=== PATIENT | female | born 1980 | race Caucasian/White ===

== ENCOUNTER 2017-04-24 13:06 | Emergency (ER) | END 2017-04-24 15:43 | disposition home or self-care (01) ==

== ENCOUNTER 2018-08-27 23:11 | Inpatient (IN) | payer MEDICAID ==
[~2018-08-27] VITALS: Ht 157.5 cm; Wt 63.5 kg
[~2018-08-27 23:11] MED LIST: AMLO2.5T78 PO; IBUP800T48 PO
[2018-08-27] MEDS ORDERED: ACETAMINOPHEN 325 MG TAB PO STA (23:14)
[2018-08-27] MEDS ORDERED: CEFEPIME 2GM/50 ML (PMX) 50 ML IVPB STA (23:14)
[2018-08-27] MEDS ORDERED: SODIUM CHLORIDE 0.9% 1L BAG IV* STA (23:18)
[2018-08-27] MEDS ORDERED: VANCOMYCIN 1 GM (PMX) 250 ML IVPB ONE (23:30)
[2018-08-27] MEDS ORDERED: ONDANSETRON 4 MG INJ IV STA (23:34)
[2018-08-27] MEDS ORDERED: HYDROmorphONE 2 MG/ML SYG IV STA (23:34)
[2018-08-27] MEDS ORDERED: ONDANSETRON 4 MG INJ ONE (23:37)
[2018-08-28 04:20] VITALS: BP 119/69; PULSE 95; RESP 18
[2018-08-28 04:33] VITALS: Ht 157.5 cm; Wt 63.5 kg
--- NOTE | 2018-08-28 04:47 | ERD ---
ER Documentation Chief Complaint Chief Complaint CP, FEVER, COUGH, X'S 3 DAYS HPI Is a 38-year-old female currently chest pain-free and without for 3 days. Vital signs triggered sepsis. Code sepsis called immediately. Per the patient has had a productive cough for the past 3 days has been getting progressively worse. She also says she has noticed an axillary lymph node is got progressively larger. Patient has history of breast cancer and has not been able to follow-up with her oncologist. ROS All systems reviewed and are negative except as per history of present illness. Medications Home Meds Active Scripts Ibuprofen* (Motrin*) 800 Mg Tab, 800 MG PO Q6H PRN for PAIN AND OR ELEVATED TEMP, #30 TAB Prov:AYAN VEGA MD 04/24/17 Reported Medications Amlodipine Besylate* (Amlodipine Besylate*) Unknown Strength Tablet, PO DAILY, #30 TAB 04/24/17 Allergies Allergies: Coded Allergies: No Known Allergy (Unverified , 08/28/18) PMhx/Soc History of Surgery: Yes (right mastectomy) Anesthesia Reaction: No Hx Neurological Disorder: No Hx Respiratory Disorders: No Hx Cardiac Disorders: Yes (HTN) Hx Psychiatric Problems: No Hx Alcohol Use: No Hx Substance Use: No Hx Tobacco Use: No Smoking Status: Never smoker Physical Exam Vitals Vital Signs Date Temp Pulse Resp B/P (MAP) Pulse Ox O2 O2 Flow FiO2 Time Delivery Rate 08/28/18 98.4 86 26 120/79 99 Room Air 01:30 (93) 08/27/18 101.7 134 22 140/79 96 23:15 (99) Physical Exam Const: No acute distress Head: Atraumatic Eyes: Normal Conjunctiva ENT: Normal External Ears, Nose and Mouth. Neck: Full range of motion. No meningismus. Resp: Clear to auscultation bilaterally Cardio: Regular rate and rhythm, no murmurs Abd: Soft, non tender, non distended. Normal bowel sounds Skin: No petechiae or rashes Back: No midline or flank tenderness Ext: No cyanosis, or edema Neur: Awake and alert Psych: Normal Mood and Affect Result Diagram: 08/27/18 4394 08/27/18 4543 Results 24 hrs Laboratory Tests Test 08/27/18 23:20 08/27/18 23:28 08/27/18 23:30 08/27/18 23:35 Urine Color YELLOW Urine Clarity SLIGHTLY CLOUDY Urine pH 6.0 Urine Specific 1.012 [place] Urine Ketones NEGATIVE mg/dL Urine Nitrite NEGATIVE mg/dL Urine Bilirubin NEGATIVE mg/dL Urine NEGATIVE mg/dL Urobilinogen Urine Leukocyte NEGATIVE Lupillo/ul Esterase Urine Microscopic 12 /HPF RBC Urine Microscopic 1 /HPF WBC Urine Squamous FEW /HPF Epithelial Cells Urine Bacteria FEW /HPF Urine Mucus FEW /HPF Urine Hemoglobin 2+ mg/dL Urine Glucose NEGATIVE mg/dL Urine Total 1+ mg/dl Protein White Blood Count 13.8 10^3/ul Red Blood Count 5.02 10^6/ul Hemoglobin 13.9 g/dl Hematocrit 41.3 % Mean Corpuscular 82.3 fl Volume Mean Corpuscular 27.7 pg Hemoglobin Mean Corpuscular 33.7 g/dl Hemoglobin Concen t Red Cell 13.5 % Distribution Width Platelet Count 264 10^3/UL Mean Platelet 10.5 fl Volume Immature 0.500 % Granulocytes % Neutrophils % 62.8 % Lymphocytes % 19.6 % Monocytes % 8.3 % Eosinophils % 8.1 % Basophils % 0.7 % Nucleated Red 0.0 /100WBC Blood Cells % Immature 0.070 10^3/ul Granulocytes # Neutrophils # 8.7 10^3/ul Lymphocytes # 2.7 10^3/ul Monocytes # 1.1 10^3/ul Eosinophils # 1.1 10^3/ul Basophils # 0.1 10^3/ul Nucleated Red 0.0 10^3/ul Blood Cells # Prothrombin Time 11.9 Sec Prothrombin Time 0.9 Ratio INR International 0.87 Normalized Ratio Activated 28.6 Sec Partial Thrombopl ast Time Sodium Level 139 mmol/L Potassium Level 3.9 mmol/L Chloride Level 105 mmol/L Carbon Dioxide 23 mmol/L Level Anion Gap 11 Blood Urea 10 mg/dl Nitrogen Creatinine 0.66 mg/dl Est Glomerular > 60 mL/min Filtrat Rate mL/min Glucose Level 142 mg/dl Calcium Level 9.3 mg/dl Total Bilirubin 0.6 mg/dl Direct Bilirubin 0.00 mg/dl Indirect 0.6 mg/dl Bilirubin Aspartate Amino 33 IU/L Transf (AST/SGOT) Alanine 27 IU/L Aminotransferase (ALT/SGPT) Alkaline 115 IU/L Phosphatase Troponin I < 0.012 ng/ml Total Protein 8.3 g/dl Albumin 4.6 g/dl Globulin 3.70 g/dl Albumin/Globulin 1.24 Ratio POC Venous 1.4 mmol/L Lactate POC Beta HCG, NEGATIVE Qualitative Test 08/28/18 01:50 Lactic Acid Level 0.7 mmol/L Current Medications Medications Dose Sig/Luis Start Time Status Last (Trade) Ordered Route PRN Stop Time Admin Dose Reason Admin 650 mg ONCE STAT 08/27/18 DC 08/27/18 Acetaminophen PO 23:14 23:39 (Tylenol 08/27/18 23:17 Tab) Cefepime HCl 50 ml @ ONCE STAT 08/27/18 DC 08/27/18 100 mls/hr IVPB 23:14 23:41 08/27/18 23:43 Vancomycin 250 ml @ ONCE ONCE 08/27/18 DC 08/27/18 HCl 125 mls/hr IVPB 23:30 23:30 08/28/18 01:29 Sodium 1,810 ml BOLUS OVER 2 08/27/18 DC 08/27/18 Chloride HOURS STAT 23:18 23:41 (NS) IV* 08/27/18 23:19 1 mg ONCE STAT 08/27/18 DC 08/27/18 Hydromorphone IV 23:34 23:39 HCl 08/27/18 23:37 (Dilaudid) Ondansetron 4 mg ONCE STAT 08/27/18 DC 08/27/18 HCl (Zofran IV 23:34 23:39 Inj) 08/27/18 23:37 Ondansetron 4 mg STK-MED 08/27/18 DC HCl (Zofran ONCE .ROUTE 23:37 Inj) 08/27/18 23:38 Procedures/MDM EKG: Rate/Rhythm: [Normal Sinus Rhythm] QRS, ST, T-waves: [No changes consistent w/ acute ischemia] Impression: [No evidence of ischemia or arrhythmia] Chest X-ray 1V Interpreted by me: Soft Tissue: No acute abnormalities Bones: No acute abnormalities Mediastinum/Cardiac Silhouette/Lungs: [No acute abnormalities] Patient's infectious symptoms have not stabilized and the patient is at risk of rapid decompensation. The patient will be admitted for careful hydration, antibiotic therapy, and infectious source control. Severe Sepsis Assessment: I medical decision making: Patient has no evidence of sepsis at this time, however she does meet Sirs criteria to be started on 30/kg fluid bolus along with antibiotics broad-spectrum. This could be secondary to axillary lymphadenopathy, however the patient did have a viral-like syndrome. At this point patient will be admitted pending culture results to the hospitalist. Again there is no evidence of sepsis or severe sepsis with negative lactic acid. Vital signs normalized during her stay here in the department given her elevation in in heart rate and the concerning adenopathy I feel the patient is admitted for further evaluation and management. Departure Diagnosis: Primary Impression: Fever Fever type: unspecified Qualified Codes: R50.9 - Fever, unspecified Additional Impressions: SIRS (systemic inflammatory response syndrome) Adenopathy Condition: Stable ABISAI KOCH August 28, 2018 04:47
[2018-08-28] MEDS ORDERED: AMLO2.5T78 PO (05:03)
[2018-08-28] MEDS ORDERED: ONDANSETRON 4 MG INJ IV PRN (05:30)
[2018-08-28] MEDS ORDERED: IBUPROFEN 600 MG TAB PO PRN (05:30)
[2018-08-28] MEDS ORDERED: NACL 0.9% 3 ML SYG IV SCH (05:30)
[2018-08-28] MEDS ORDERED: ALBUTEROL/IPRATROPIUM (NEB) 3 ML AMP HHN PRN (05:30)
[2018-08-28] MEDS: SOD CHLORIDE 0.9% 1,000 ML IV SCH ×2 (05:40→15:48)
--- NOTE | 2018-08-28 06:36 | HP ---
Date/Time of Note Date/Time of Note DATE: 08/28/18 TIME: 06:33 Assessment/Plan VTE Prophylaxis Pharmacological prophylaxis: heparin Lines/Catheters IV Catheter Type (from Nrs): Peripheral IV Assessment/Plan Assessment/Plan 1. Sepsis: As evidenced by fever, tachycardia and leukocytosis: Suspect secondary to early developing pneumonia VS bronchitis -IV antibiotic -IV fluid -Follow-up culture results 2. History of right breast cancer status post mastectomy as well as chemo/radiation: She said she has been in remission for many years -She said her oncologist is in [facility]. She states she does not follow-up with an oncologist here -Patient has a small palpable lump, just outside the right axilla. It is tender to touch. Will obtain CT for evaluation -Oncology consult as needed 3. Chest pain: Currently resolved -Likely secondary to 1 and 2 Result Diagram: 08/28/18 0551 08/27/18 2328 Results 24hrs Laboratory Tests Test 08/27/18 23:20 08/27/18 23:28 08/27/18 23:30 08/27/18 23:35 Urine Color YELLOW Urine Clarity SLIGHTLY CLOUDY A Urine pH 6.0 Urine Specific 1.012 [place] Urine Ketones NEGATIVE Urine Nitrite NEGATIVE Urine Bilirubin NEGATIVE Urine NEGATIVE Urobilinogen Urine Leukocyte NEGATIVE Esterase Urine Microscopic 12 H RBC Urine Microscopic 1 WBC Urine Squamous FEW Epithelial Cells Urine Bacteria FEW A Urine Mucus FEW A Urine Hemoglobin 2+ H Urine Glucose NEGATIVE Urine Total 1+ H Protein White Blood Count 13.8 #H Red Blood Count 5.02 Hemoglobin 13.9 Hematocrit 41.3 Mean Corpuscular 82.3 Volume Mean Corpuscular 27.7 L Hemoglobin Mean Corpuscular 33.7 Hemoglobin Concen t Red Cell 13.5 Distribution Width Platelet Count 264 Mean Platelet 10.5 H Volume Immature 0.500 H Granulocytes % Neutrophils % 62.8 Lymphocytes % 19.6 Monocytes % 8.3 Eosinophils % 8.1 H Basophils % 0.7 Nucleated Red 0.0 Blood Cells % Immature 0.070 H Granulocytes # Neutrophils # 8.7 H Lymphocytes # 2.7 Monocytes # 1.1 H Eosinophils # 1.1 H Basophils # 0.1 Nucleated Red 0.0 Blood Cells # Prothrombin Time 11.9 Prothrombin Time 0.9 Ratio INR International 0.87 Normalized Ratio Activated 28.6 Partial Thrombopl ast Time Sodium Level 139 Potassium Level 3.9 Chloride Level 105 Carbon Dioxide 23 Level Anion Gap 11 Blood Urea 10 Nitrogen Creatinine 0.66 Est Glomerular > 60 Filtrat Rate mL/min Glucose Level 142 Calcium Level 9.3 Total Bilirubin 0.6 Direct Bilirubin 0.00 Indirect 0.6 Bilirubin Aspartate Amino 33 Transf (AST/SGOT) Alanine 27 Aminotransferase (ALT/SGPT) Alkaline 115 Phosphatase Troponin I < 0.012 Total Protein 8.3 H Albumin 4.6 Globulin 3.70 H Albumin/Globulin 1.24 Ratio POC Venous 1.4 Lactate POC Beta HCG, NEGATIVE Qualitative Test 08/28/18 01:50 08/28/18 05:51 Lactic Acid Level 0.7 White Blood Count 9.9 # Red Blood Count 4.49 Hemoglobin 12.5 Hematocrit 37.2 Mean Corpuscular 82.9 Volume Mean Corpuscular 27.8 L Hemoglobin Mean Corpuscular 33.6 Hemoglobin Concen t Red Cell 13.8 Distribution Width Platelet Count 229 Mean Platelet 10.5 H Volume Immature 0.400 Granulocytes % Neutrophils % 59.4 Lymphocytes % 19.1 Monocytes % 11.2 H Eosinophils % 9.1 H Basophils % 0.8 Nucleated Red 0.0 Blood Cells % Immature 0.040 H Granulocytes # Neutrophils # 5.9 Lymphocytes # 1.9 Monocytes # 1.1 H Eosinophils # 0.9 H Basophils # 0.1 Nucleated Red 0.0 Blood Cells # HPI/ROS Admit Date/Time Admit Date/Time August 28, 2018 at 03:11 Hx of Present Illness This is a 38-year-old female with a history of breast cancer status post mastectomy who presented to ER complaining of right-sided chest pain, cough and fever. Symptoms been progressively getting worse for the past 3 days or so. Cough has been productive of whitish sputum. Also reports lump underneath just medial to her right armpit. Area is tender to touch. Patient also reported an episode of epistaxis. When she presented to the ER, she was febrile with temperature of 101.7, heart rate 134. WBC 14,000. Chest x-ray without acute findings. UA negative for UTI PMH/Family/Social Past Medical History Medical History: other (See HPI) Medications Current Medications Sodium Chloride 1,000 ml @ 100 mls/hr Q10H IV Last administered on 08/28/18at 05:40; Admin Dose 100 MLS/HR; Start 08/28/18 at 05:06 IV Flush (NS 3 ml) 3 ml PER PROTOCOL IV ; Start 08/28/18 at 05:30 Ondansetron HCl (Zofran Inj) 4 mg Q6H PRN IV NAUSEA/VOMITING; Start 08/28/18 at 05:30 Enoxaparin Sodium (Lovenox) 40 mg DAILY SC ; Start 08/28/18 at 09:00 Albuterol/ Ipratropium (Duoneb) 3 ml Q2H RESP THERAPY PRN HHN SHORTNESS OF BREATH; Start 08/28/18 at 05:30 Amlodipine Besylate (Norvasc) 5 mg DAILY PO ; Start 08/28/18 at 09:00 Ibuprofen (Motrin) 600 mg Q6H PRN PO MILD PAIN(1-3)OR ELEVATED TEMP; Start 08/28/18 at 05:30 Levofloxacin/ Dextrose 100 ml @ 100 mls/hr DAILY IVPB ; Start 08/28/18 at 09:00 Coded Allergies: No Known Allergy (Unverified , 08/28/18) Past Surgical History Past Surgical Hx: other (See HPI) Family History Significant Family History: no pertinent family hx Social History Alcohol Use: none Smoking Status: Unknown if ever smoked Drug Use: none Exam/Review of Systems Vital Signs Vitals Vital Signs Date Temp Pulse Resp B/P (MAP) Pulse Ox O2 O2 Flow FiO2 Time Delivery Rate 08/28/18 98.2 95 18 119/69 93 Room Air 04:20 (86) Exam Constitutional: alert, oriented, well developed Head: normocephalic, atraumatic Eyes: EOMI, PERRL Respiratory: clear to auscultation, normal air movement Cardiovascular: regular rate and rhythm, nl pulses Gastrointestinal: soft, non-tender Musculoskeletal: other (Status post right mastectomy. There is a small lump just outside the right axilla which is tender to touch.) Extremities: normal pulses ABISAI SILVA MD August 28, 2018 06:36
[2018-08-28 07:53] VITALS: BP 90/58; PULSE 58; RESP 18
[2018-08-28 08:53] VITALS: BP 107/57; PULSE 80
[2018-08-28] MEDS: AMLODIPINE 5 MG TAB PO SCH (08:58)
[2018-08-28] MEDS: ENOXAPARIN 40 MG/0.4 ML SYG SC SCH (09:00)
[2018-08-28] MEDS ORDERED: LEVOFLOXACIN 500MG/D5W (PMX) 100 ML IVPB SCH (09:00)
[2018-08-28] MEDS ORDERED: GUAIFENESIN/DM 5ML CUP PO PRN (12:00)
--- NOTE | 2018-08-28 12:05 | PN ---
Date/Time of Note Date/Time of Note DATE: 08/28/18 TIME: 12:03 Assessment/Plan VTE Prophylaxis Risk score (from [facility])>0 risk: 3 SCD applied (from [facility]): No SCD contraindicated: low risk/ambulating Pharmacological prophylaxis: NA/contraindicated, LMWH Pharm contraindication: patient refusal Lines/Catheters IV C[facility]ter Type (from [facility] Peripheral IV Assessment/Plan Hospital Course A/P 1. Pneumonitis? cough/ fever; consulted Pul 2. H/o Ca Breast; sx/chemo/ xrt in [facility] 3. Rt axilla lump S: cough; green/ yellow expectoration; sore throat, kid has cough. less fever O: vss PE no pallor/ jvd reg s1s2 no mrg ctab/ diminished bases; no tachypnea bs+ nt nd no r r g no edema Result Diagram: 08/28/1851 08/28/18 0551 Results 24hrs Laboratory Tests Test 08/27/18 23:20 08/27/18 23:28 08/27/18 23:30 08/27/18 23:35 Urine Color YELLOW Urine Clarity SLIGHTLY CLOUDY A Urine pH 6.0 Urine Specific 1.012 [place] Urine Ketones NEGATIVE Urine Nitrite NEGATIVE Urine Bilirubin NEGATIVE Urine NEGATIVE Urobilinogen Urine Leukocyte NEGATIVE Esterase Urine Microscopic 12 H RBC Urine Microscopic 1 WBC Urine Squamous FEW Epithelial Cells Urine Bacteria FEW A Urine Mucus FEW A Urine Hemoglobin 2+ H Urine Glucose NEGATIVE Urine Total 1+ H Protein White Blood Count 13.8 #H Red Blood Count 5.02 Hemoglobin 13.9 Hematocrit 41.3 Mean Corpuscular 82.3 Volume Mean Corpuscular 27.7 L Hemoglobin Mean Corpuscular 33.7 Hemoglobin Concen t Red Cell 13.5 Distribution Width Platelet Count 264 Mean Platelet 10.5 H Volume Immature 0.500 H Granulocytes % Neutrophils % 62.8 Lymphocytes % 19.6 Monocytes % 8.3 Eosinophils % 8.1 H Basophils % 0.7 Nucleated Red 0.0 Blood Cells % Immature 0.070 H Granulocytes # Neutrophils # 8.7 H Lymphocytes # 2.7 Monocytes # 1.1 H Eosinophils # 1.1 H Basophils # 0.1 Nucleated Red 0.0 Blood Cells # Prothrombin Time 11.9 Prothrombin Time 0.9 Ratio INR International 0.87 Normalized Ratio Activated 28.6 Partial Thrombopl ast Time Sodium Level 139 Potassium Level 3.9 Chloride Level 105 Carbon Dioxide 23 Level Anion Gap 11 Blood Urea 10 Nitrogen Creatinine 0.66 Est Glomerular > 60 Filtrat Rate mL/min Glucose Level 142 Calcium Level 9.3 Total Bilirubin 0.6 Direct Bilirubin 0.00 Indirect 0.6 Bilirubin Aspartate Amino 33 Transf (AST/SGOT) Alanine 27 Aminotransferase (ALT/SGPT) Alkaline 115 Phosphatase Troponin I < 0.012 Total Protein 8.3 H Albumin 4.6 Globulin 3.70 H Albumin/Globulin 1.24 Ratio POC Venous 1.4 Lactate POC Beta HCG, NEGATIVE Qualitative Test 08/28/18 01:50 08/28/18 05:51 Lactic Acid Level 0.7 0.9 White Blood Count 9.9 # Red Blood Count 4.49 Hemoglobin 12.5 Hematocrit 37.2 Mean Corpuscular 82.9 Volume Mean Corpuscular 27.8 L Hemoglobin Mean Corpuscular 33.6 Hemoglobin Concen t Red Cell 13.8 Distribution Width Platelet Count 229 Mean Platelet 10.5 H Volume Immature 0.400 Granulocytes % Neutrophils % 59.4 Lymphocytes % 19.1 Monocytes % 11.2 H Eosinophils % 9.1 H Basophils % 0.8 Nucleated Red 0.0 Blood Cells % Immature 0.040 H Granulocytes # Neutrophils # 5.9 Lymphocytes # 1.9 Monocytes # 1.1 H Eosinophils # 0.9 H Basophils # 0.1 Nucleated Red 0.0 Blood Cells # Sodium Level 140 Potassium Level 3.8 Chloride Level 110 Carbon Dioxide 21 Level Anion Gap 9 Blood Urea 7 Nitrogen Creatinine 0.53 Est Glomerular > 60 Filtrat Rate mL/min Glucose Level 103 Hemoglobin A1c 5.5 Calcium Level 7.9 L Total Bilirubin 0.5 Direct Bilirubin 0.00 Indirect 0.5 Bilirubin Aspartate Amino 23 Transf (AST/SGOT) Alanine 31 Aminotransferase (ALT/SGPT) Alkaline 90 Phosphatase Total Protein 6.9 # Albumin 3.6 # Globulin 3.30 H Albumin/Globulin 1.09 Ratio Triglycerides 234 H Level Cholesterol Level 130 LDL Cholesterol, 55 Calculated HDL Cholesterol 28 L Cholesterol/HDL 4.6 Ratio Exam/Review of Systems Exam Vitals Vital Signs Date Temp Pulse Resp B/P (MAP) Pulse Ox O2 O2 Flow FiO2 Time Delivery Rate 08/28/18 80 107/57 08:53 (74) 08/28/18 98.1 18 96 Room Air 07:53 Results Results 24hrs Laboratory Tests Test 08/27/18 23:20 08/27/18 23:28 08/27/18 23:30 08/27/18 23:35 Urine Color YELLOW Urine Clarity SLIGHTLY CLOUDY A Urine pH 6.0 Urine Specific 1.012 [place] Urine Ketones NEGATIVE Urine Nitrite NEGATIVE Urine Bilirubin NEGATIVE Urine NEGATIVE Urobilinogen Urine Leukocyte NEGATIVE Esterase Urine Microscopic 12 H RBC Urine Microscopic 1 WBC Urine Squamous FEW Epithelial Cells Urine Bacteria FEW A Urine Mucus FEW A Urine Hemoglobin 2+ H Urine Glucose NEGATIVE Urine Total 1+ H Protein White Blood Count 13.8 #H Red Blood Count 5.02 Hemoglobin 13.9 Hematocrit 41.3 Mean Corpuscular 82.3 Volume Mean Corpuscular 27.7 L Hemoglobin Mean Corpuscular 33.7 Hemoglobin Concen t Red Cell 13.5 Distribution Width Platelet Count 264 Mean Platelet 10.5 H Volume Immature 0.500 H Granulocytes % Neutrophils % 62.8 Lymphocytes % 19.6 Monocytes % 8.3 Eosinophils % 8.1 H Basophils % 0.7 Nucleated Red 0.0 Blood Cells % Immature 0.070 H Granulocytes # Neutrophils # 8.7 H Lymphocytes # 2.7 Monocytes # 1.1 H Eosinophils # 1.1 H Basophils # 0.1 Nucleated Red 0.0 Blood Cells # Prothrombin Time 11.9 Prothrombin Time 0.9 Ratio INR International 0.87 Normalized Ratio Activated 28.6 Partial Thrombopl ast Time Sodium Level 139 Potassium Level 3.9 Chloride Level 105 Carbon Dioxide 23 Level Anion Gap 11 Blood Urea 10 Nitrogen Creatinine 0.66 Est Glomerular > 60 Filtrat Rate mL/min Glucose Level 142 Calcium Level 9.3 Total Bilirubin 0.6 Direct Bilirubin 0.00 Indirect 0.6 Bilirubin Aspartate Amino 33 Transf (AST/SGOT) Alanine 27 Aminotransferase (ALT/SGPT) Alkaline 115 Phosphatase Troponin I < 0.012 Total Protein 8.3 H Albumin 4.6 Globulin 3.70 H Albumin/Globulin 1.24 Ratio POC Venous 1.4 Lactate POC Beta HCG, NEGATIVE Qualitative Test 08/28/18 01:50 08/28/18 05:51 Lactic Acid Level 0.7 0.9 White Blood Count 9.9 # Red Blood Count 4.49 Hemoglobin 12.5 Hematocrit 37.2 Mean Corpuscular 82.9 Volume Mean Corpuscular 27.8 L Hemoglobin Mean Corpuscular 33.6 Hemoglobin Concen t Red Cell 13.8 Distribution Width Platelet Count 229 Mean Platelet 10.5 H Volume Immature 0.400 Granulocytes % Neutrophils % 59.4 Lymphocytes % 19.1 Monocytes % 11.2 H Eosinophils % 9.1 H Basophils % 0.8 Nucleated Red 0.0 Blood Cells % Immature 0.040 H Granulocytes # Neutrophils # 5.9 Lymphocytes # 1.9 Monocytes # 1.1 H Eosinophils # 0.9 H Basophils # 0.1 Nucleated Red 0.0 Blood Cells # Sodium Level 140 Potassium Level 3.8 Chloride Level 110 Carbon Dioxide 21 Level Anion Gap 9 Blood Urea 7 Nitrogen Creatinine 0.53 Est Glomerular > 60 Filtrat Rate mL/min Glucose Level 103 Hemoglobin A1c 5.5 Calcium Level 7.9 L Total Bilirubin 0.5 Direct Bilirubin 0.00 Indirect 0.5 Bilirubin Aspartate Amino 23 Transf (AST/SGOT) Alanine 31 Aminotransferase (ALT/SGPT) Alkaline 90 Phosphatase Total Protein 6.9 # Albumin 3.6 # Globulin 3.30 H Albumin/Globulin 1.09 Ratio Triglycerides 234 H Level Cholesterol Level 130 LDL Cholesterol, 55 Calculated HDL Cholesterol 28 L Cholesterol/HDL 4.6 Ratio Medications Medication Current Medications Sodium Chloride 1,000 ml @ 100 mls/hr Q10H IV Last administered on 08/28/18at 05:40; Admin Dose 100 MLS/HR; Start 08/28/18 at 05:06 IV Flush (NS 3 ml) 3 ml PER PROTOCOL IV ; Start 08/28/18 at 05:30 Ondansetron HCl (Zofran Inj) 4 mg Q6H PRN IV NAUSEA/VOMITING; Start 08/28/18 at 05:30 Enoxaparin Sodium (Lovenox) 40 mg DAILY SC Last administered on 08/28/18at 09:00; Admin Dose 40 MG; Start 08/28/18 at 09:00 Albuterol/ Ipratropium (Duoneb) 3 ml Q2H RESP THERAPY PRN HHN SHORTNESS OF BREATH; Start 08/28/18 at 05:30 Amlodipine Besylate (Norvasc) 5 mg DAILY PO Last administered on 08/28/18at 08:58; Admin Dose 5 MG; Start 08/28/18 at 09:00 Ibuprofen (Motrin) 600 mg Q6H PRN PO MILD PAIN(1-3)OR ELEVATED TEMP; Start 08/28/18 at 05:30 Levofloxacin/ Dextrose 100 ml @ 100 mls/hr DAILY IVPB Last administered on 08/28/18at 09:29; Admin Dose 100 MLS/HR; Start 08/28/18 at 09:00 CATHERINE REID MD August 28, 2018 12:05
[2018-08-28 14:00] VITALS: BP 99/62; PULSE 100; RESP 18
[2018-08-28 19:51] VITALS: BP 98/65; PULSE 77; RESP 20
[2018-08-28] MEDS: OXYMETAZOLINE 0.05% 15 ML NAS SPRAY NASAL SCH (20:41)
[2018-08-29] MEDS: SOD CHLORIDE 0.9% 1,000 ML IV SCH ×3 (01:14→21:40)
[2018-08-29 01:53] VITALS: BP 91/57; PULSE 77; RESP 18
[2018-08-29] MEDS: LEVOFLOXACIN 750 MG TABLET PO SCH (06:31)
[2018-08-29 08:11] VITALS: BP 97/54; PULSE 75; RESP 16
[2018-08-29] MEDS: AMLODIPINE 5 MG TAB PO SCH (08:33)
[2018-08-29] MEDS: ENOXAPARIN 40 MG/0.4 ML SYG SC SCH (08:39)
[2018-08-29] MEDS: OXYMETAZOLINE 0.05% 15 ML NAS SPRAY NASAL SCH ×3 (08:45→21:36)
--- NOTE | 2018-08-29 10:57 | CONS ---
Assessment/Plan Assessment/Plan Assessment/Plan (Daily) Assessment recommendations; 1. Patient admitted bilateral acquired pneumonia possibly with a viral component. Clinically improving. 2. Remote history of right breast cancer. Continue Levaquin. Add Tamiflu 75 mg twice daily for 5 days. Continue other supportive measures. Obtain follow-up chest x-ray in 48 hours. Consultation Date/Type/Reason Admit Date/Time August 28, 2018 at 03:11 Date of Consultation: August 29, 2018 Type of Consult Pulmonary Patient is a pleasant 38-year-old lady who came into the hospital with 2-day history of coughing and chest congestion with scant sputum production. Patient denies any high fever, chills, body aches or myalgias. Since admission patient is feeling better. Past medical history; 1. Remote history of right breast cancer status post mastectomy with chemoradiation. Apparently patient is in remission. Medications; reviewed. Allergies; none. Social history; noncontributory. Family history; noncontributory. Occupational history; patient is a housewife. Review of systems; denies any headache, visual changes, sinus symptoms. Complains of scant cough without any hemoptysis. Complains of very scant yellow sputum production. Denies any body aches or myalgias. Any wheezing. Any abdominal pain, nausea vomiting. Any weight loss. Any skin changes or any new arthritis symptoms. Denies any melena hematochezia. General exam; young female, awake alert, currently no distress on room air. Date/Time of Note DATE: 08/29/18 TIME: 10:54 Past Medical History Medical History: other (See HPI) Home Meds Active Scripts Ibuprofen* (Motrin*) 800 Mg Tab, 800 MG PO Q6H PRN for PAIN AND OR ELEVATED TE MP, #30 TAB Prov:AYAN VEGA MD 04/24/17 Reported Medications Amlodipine Besylate* (Amlodipine Besylate*) 2.5 Mg Tablet, 5 MG PO DAILY, #30 TAB 08/28/18 Amlodipine Besylate* (Amlodipine Besylate*) Unknown Strength Tablet, PO DAILY, #30 TAB 04/24/17 Medications Current Medications Sodium Chloride 1,000 ml @ 100 mls/hr Q10H IV Last administered on 08/29/18at 01:14; Admin Dose 100 MLS/HR; Start 08/28/18 at 05:06 IV Flush (NS 3 ml) 3 ml PER PROTOCOL IV ; Start 08/28/18 at 05:30 Ondansetron HCl (Zofran Inj) 4 mg Q6H PRN IV NAUSEA/VOMITING; Start 08/28/18 at 05:30 Enoxaparin Sodium (Lovenox) 40 mg DAILY SC Last administered on 08/29/18at 08:39; Admin Dose 40 MG; Start 08/28/18 at 09:00 Albuterol/ Ipratropium (Duoneb) 3 ml Q2H RESP THERAPY PRN HHN SHORTNESS OF BREATH; Start 08/28/18 at 05:30 Amlodipine Besylate (Norvasc) 5 mg DAILY PO Last administered on 08/28/18at 08:58; Admin Dose 5 MG; Start 08/28/18 at 09:00 Ibuprofen (Motrin) 600 mg Q6H PRN PO MILD PAIN(1-3)OR ELEVATED TEMP; Start 08/28/18 at 05:30 Levofloxacin (Levaquin) 750 mg DAILY@06 PO Last administered on 08/29/18at 06:31; Admin Dose 750 MG; Start 08/29/18 at 06:00 Guaifenesin/ Dextromethorphan (Robitussin Dm Liquid Cup) 10 ml Q4 PRN PO COUGH; Start 08/28/18 at 12:00 Oxymetazoline HCl (Afrin [place]) 2 spray BID NASAL ; Start 08/29/18 at 08:45 Allergies: Coded Allergies: No Known Allergy (Unverified , 08/28/18) Past Surgical History Past Surgical Hx: other (See HPI) Social History Alcohol Use: none Smoking Status: Unknown if ever smoked Drug Use: none Exam/Review of Systems Exam Vitals Vital Signs Date Temp Pulse Resp B/P (MAP) Pulse Ox O2 O2 Flow FiO2 Time Delivery Rate 08/29/18 98.0 75 16 97/54 (68) 98 Room Air 08:11 Intake and Output 08/28/18 08/28/18 08/29/18 1515:00 23:00 07:00 IntakeIntake Total 740 ml 1570 ml 1150 ml BalanceBalance 740 ml 1570 ml 1150 ml Exam HEENT exam; supple neck, no JVD. No lymphadenopathy. Midline trachea. No thyromegaly. Patient has fair dentition. Pharynx is clear. Chest exam; diminished but clear breath sounds. S1-S2 audible, no murmurs. Regular rhythm. Abdomen exam; soft, no organomegaly. Bowel sounds audible. Extremity exam; no peripheral edema or clubbing. [employer] exam; no focal deficit. Results Result Diagram: 08/29/18 0534 08/29/18 0542 Results 24hrs Laboratory Tests Test 08/29/18 05:34 08/29/18 05:42 White Blood Count 7.5 # Red Blood Count 4.48 Hemoglobin 12.3 Hematocrit 37.5 Mean Corpuscular Volume 83.7 Mean Corpuscular Hemoglobin 27.5 L Mean Corpuscular Hemoglobin Concent 32.8 Red Cell Distribution Width 13.6 Platelet Count 242 Mean Platelet Volume 10.4 Immature Granulocytes % 0.400 Neutrophils % 47.3 Lymphocytes % 31.5 Monocytes % 8.5 Eosinophils % 11.6 H Basophils % 0.7 Nucleated Red Blood Cells % 0.0 Immature Granulocytes # 0.030 Neutrophils # 3.6 Lymphocytes # 2.4 Monocytes # 0.6 Eosinophils # 0.9 H Basophils # 0.1 Nucleated Red Blood Cells # 0.0 Sodium Level 140 140 Potassium Level 4.2 4.4 Chloride Level 111 H 111 H Carbon Dioxide Level 23 22 Anion Gap 6 7 Blood Urea Nitrogen 9 10 Creatinine 0.60 0.59 Est Glomerular Filtrat Rate mL/min > 60 > 60 Glucose Level 92 92 Calcium Level 8.3 L 8.8 Phosphorus Level 3.8 Magnesium Level 2.0 Total Bilirubin 0.6 Direct Bilirubin 0.00 Indirect Bilirubin 0.6 Aspartate Amino Transf (AST/SGOT) 29 Alanine Aminotransferase (ALT/SGPT) 31 Alkaline Phosphatase 66 Total Protein 6.5 Albumin 3.6 Globulin 2.90 Albumin/Globulin Ratio 1.24 Thyroid Stimulating Hormone (TSH) 4.620 Medications Medication Current Medications Sodium Chloride 1,000 ml @ 100 mls/hr Q10H IV Last administered on 08/29/18at 01:14; Admin Dose 100 MLS/HR; Start 08/28/18 at 05:06 IV Flush (NS 3 ml) 3 ml PER PROTOCOL IV ; Start 08/28/18 at 05:30 Ondansetron HCl (Zofran Inj) 4 mg Q6H PRN IV NAUSEA/VOMITING; Start 08/28/18 at 05:30 Enoxaparin Sodium (Lovenox) 40 mg DAILY SC Last administered on 08/29/18at 08:3 9; Admin Dose 40 MG; Start 08/28/18 at 09:00 Albuterol/ Ipratropium (Duoneb) 3 ml Q2H RESP THERAPY PRN HHN SHORTNESS OF BREATH; Start 08/28/18 at 05:30 Amlodipine Besylate (Norvasc) 5 mg DAILY PO Last administered on 08/28/18at 08:58; Admin Dose 5 MG; Start 08/28/18 at 09:00 Ibuprofen (Motrin) 600 mg Q6H PRN PO MILD PAIN(1-3)OR ELEVATED TEMP; Start 08/28/18 at 05:30 Levofloxacin (Levaquin) 750 mg DAILY@06 PO Last administered on 08/29/18at 06:31; Admin Dose 750 MG; Start 08/29/18 at 06:00 Guaifenesin/ Dextromethorphan (Robitussin Dm Liquid Cup) 10 ml Q4 PRN PO COUGH; Start 08/28/18 at 12:00 Oxymetazoline HCl (Afrin [place]) 2 spray BID NASAL ; Start 08/29/18 at 08:45 TAMARA ROMERO August 29, 2018 10:57
[2018-08-29] MEDS ORDERED: LEVOFLOXACIN 500MG/D5W (PMX) 100 ML IVPB SCH (11:00)
[2018-08-29] MEDS: OSELTAMIVIR 75 MG CAP PO SCH ×2 (12:18→21:36)
--- NOTE | 2018-08-29 12:45 | PN ---
Date/Time of Note Date/Time of Note DATE: 08/29/18 TIME: 12:44 Assessment/Plan VTE Prophylaxis Risk score (from Nsg)>0 risk: 2 SCD applied (from Nsg): Yes SCD contraindicated: low risk/ambulating Pharmacological prophylaxis: LMWH Lines/Catheters IV Catheter Type (from Nrsg): Peripheral IV Assessment/Plan Hospital Course A/P 1. Pneumonitis? cough/ fever; consulted Pul. Started on antiviral therapy additionally. 2. H/o Ca Breast; sx/chemo/ xrt in [facility] 3. Rt axilla lump: Outpatient oncology S: 08/28 cough; green/ yellow expectoration; sore throat, kid has cough. less fever /22: Feels better wants to go home O: vss PE no pallor/ jvd reg s1s2 no mrg ctab/ diminished bases; no tachypnea bs+ nt nd no r r g no edema Result Diagram: 08/29/18 0534 08/29/18 0542 Results 24hrs Laboratory Tests Test 08/29/18 05:34 08/29/18 05:42 White Blood Count 7.5 # Red Blood Count 4.48 Hemoglobin 12.3 Hematocrit 37.5 Mean Corpuscular Volume 83.7 Mean Corpuscular Hemoglobin 27.5 L Mean Corpuscular Hemoglobin Concent 32.8 Red Cell Distribution Width 13.6 Platelet Count 242 Mean Platelet Volume 10.4 Immature Granulocytes % 0.400 Neutrophils % 47.3 Lymphocytes % 31.5 Monocytes % 8.5 Eosinophils % 11.6 H Basophils % 0.7 Nucleated Red Blood Cells % 0.0 Immature Granulocytes # 0.030 Neutrophils # 3.6 Lymphocytes # 2.4 Monocytes # 0.6 Eosinophils # 0.9 H Basophils # 0.1 Nucleated Red Blood Cells # 0.0 Sodium Level 140 140 Potassium Level 4.2 4.4 Chloride Level 111 H 111 H Carbon Dioxide Level 23 22 Anion Gap 6 7 Blood Urea Nitrogen 9 10 Creatinine 0.60 0.59 Est Glomerular Filtrat Rate mL/min > 60 > 60 Glucose Level 92 92 Calcium Level 8.3 L 8.8 Phosphorus Level 3.8 Magnesium Level 2.0 Total Bilirubin 0.6 Direct Bilirubin 0.00 Indirect Bilirubin 0.6 Aspartate Amino Transf (AST/SGOT) 29 Alanine Aminotransferase (ALT/SGPT) 31 Alkaline Phosphatase 66 Total Protein 6.5 Albumin 3.6 Globulin 2.90 Albumin/Globulin Ratio 1.24 Thyroid Stimulating Hormone (TSH) 4.620 Exam/Review of Systems Exam Vitals Vital Signs Date Temp Pulse Resp B/P (MAP) Pulse Ox O2 O2 Flow FiO2 Time Delivery Rate 08/29/18 98.0 75 16 97/54 (68) 98 Room Air 08:11 Intake and Output 08/28/18 08/28/18 08/29/18 1515:00 23:00 07:00 IntakeIntake Total 740 ml 1570 ml 1150 ml BalanceBalance 740 ml 1570 ml 1150 ml Results Results 24hrs Laboratory Tests Test 08/29/18 05:34 08/29/18 05:42 White Blood Count 7.5 # Red Blood Count 4.48 Hemoglobin 12.3 Hematocrit 37.5 Mean Corpuscular Volume 83.7 Mean Corpuscular Hemoglobin 27.5 L Mean Corpuscular Hemoglobin Concent 32.8 Red Cell Distribution Width 13.6 Platelet Count 242 Mean Platelet Volume 10.4 Immature Granulocytes % 0.400 Neutrophils % 47.3 Lymphocytes % 31.5 Monocytes % 8.5 Eosinophils % 11.6 H Basophils % 0.7 Nucleated Red Blood Cells % 0.0 Immature Granulocytes # 0.030 Neutrophils # 3.6 Lymphocytes # 2.4 Monocytes # 0.6 Eosinophils # 0.9 H Basophils # 0.1 Nucleated Red Blood Cells # 0.0 Sodium Level 140 140 Potassium Level 4.2 4.4 Chloride Level 111 H 111 H Carbon Dioxide Level 23 22 Anion Gap 6 7 Blood Urea Nitrogen 9 10 Creatinine 0.60 0.59 Est Glomerular Filtrat Rate mL/min > 60 > 60 Glucose Level 92 92 Calcium Level 8.3 L 8.8 Phosphorus Level 3.8 Magnesium Level 2.0 Total Bilirubin 0.6 Direct Bilirubin 0.00 Indirect Bilirubin 0.6 Aspartate Amino Transf (AST/SGOT) 29 Alanine Aminotransferase (ALT/SGPT) 31 Alkaline Phosphatase 66 Total Protein 6.5 Albumin 3.6 Globulin 2.90 Albumin/Globulin Ratio 1.24 Thyroid Stimulating Hormone (TSH) 4.620 Medications Medication Current Medications Sodium Chloride 1,000 ml @ 100 mls/hr Q10H IV Last administered on 08/29/18at 11:34; Admin Dose 100 MLS/HR; Start 08/28/18 at 05:06 IV Flush (NS 3 ml) 3 ml PER PROTOCOL IV ; Start 08/28/18 at 05:30 Ondansetron HCl (Zofran Inj) 4 mg Q6H PRN IV NAUSEA/VOMITING; Start 08/28/18 at 05:30 Enoxaparin Sodium (Lovenox) 40 mg DAILY SC Last administered on 08/29/18at 08:39; Admin Dose 40 MG; Start 08/28/18 at 09:00 Albuterol/ Ipratropium (Duoneb) 3 ml Q2H RESP THERAPY PRN HHN SHORTNESS OF BREATH; Start 08/28/18 at 05:30 Amlodipine Besylate (Norvasc) 5 mg DAILY PO Last administered on 08/28/18at 0 8:58; Admin Dose 5 MG; Start 08/28/18 at 09:00 Ibuprofen (Motrin) 600 mg Q6H PRN PO MILD PAIN(1-3)OR ELEVATED TEMP; Start 08/28/18 at 05:30 Levofloxacin (Levaquin) 750 mg DAILY@06 PO Last administered on 08/29/18at 06:31; Admin Dose 750 MG; Start 08/29/18 at 06:00 Guaifenesin/ Dextromethorphan (Robitussin Dm Liquid Cup) 10 ml Q4 PRN PO COUGH; Start 08/28/18 at 12:00 Oxymetazoline HCl (Afrin [place]) 2 spray BID NASAL ; Start 08/29/18 at 08:45 Levofloxacin/ Dextrose 100 ml @ 100 mls/hr Q24H IVPB Last administered on 08/29/18at 11:32; Admin Dose 100 MLS/HR; Start 08/29/18 at 11:00 Oseltamivir Phosphate (Tamiflu) 75 mg BID PO Last administered on 08/29/18at 12:18; Admin Dose 75 MG; Start 08/29/18 at 11:00 CATHERINE REID MD August 29, 2018 12:45
[2018-08-29 14:52] VITALS: BP 104/63; PULSE 73; RESP 16
[2018-08-29 20:00] VITALS: BP 119/62; PULSE 79; RESP 18
[2018-08-30 02:00] VITALS: BP 121/73; PULSE 81; RESP 19
[2018-08-30] MEDS: SOD CHLORIDE 0.9% 1,000 ML IV SCH ×2 (07:06→08:10)
[2018-08-30] MEDS: LEVOFLOXACIN 750 MG TABLET PO SCH (07:21)
[2018-08-30] MEDS: OSELTAMIVIR 75 MG CAP PO SCH (08:06)
[2018-08-30 08:10] VITALS: BP 101/65; PULSE 68; RESP 16
[2018-08-30] MEDS: AMLODIPINE 5 MG TAB PO SCH (08:14)
[2018-08-30] MEDS: OXYMETAZOLINE 0.05% 15 ML NAS SPRAY NASAL SCH (08:15)
[2018-08-30] MEDS: ENOXAPARIN 40 MG/0.4 ML SYG SC SCH (08:19)
[2018-08-30 14:52] VITALS: BP 104/62; PULSE 79; RESP 16
--- NOTE | 2018-08-30 15:22 | PDOCDIS ---
Discharge Instructions CONDITION [id number] Patient Condition: [id number] Stable HOME CARE INSTRUCTIONS: [id number] Diet Instructions: [id number] Regular ACTIVITY: [id number] Activity Restrictions: [id number] Slowly Increase Activity FOLLOW UP/APPOINTMENTS Follow-up Plan appt primary 1wk CATHERINE REID MD August 30, 2018 15:22
[2018-08-30] MEDS ORDERED: GUAI120S25 PO (15:23)
[2018-08-30] MEDS ORDERED: LEVO750T25 PO (15:23)
[2018-08-30] MEDS ORDERED: OSEL75CA16 PO (15:23)
[2018-08-30] MEDS ORDERED: ALBU90AE INHALATION (15:25)
== END 2018-08-30 18:03 | disposition home or self-care (01) | DRG 195 ==
LOC: E/R 23:11 → 5EC 08-28 03:11
PROVIDERS: ADMIT Internal Medicine; ATTEND Internal Medicine
DX: J18.9 Pneumonia, unspecified organism (principal); Z85.3 Personal history of malignant neoplasm of breast
CPT/HCPCS: 36415; 71045; 71250; 80048; 80053; 80061; 81001; 81025; 83036; 83605; 83735; 84100; 84145; 84443; 84484; 85025; 85610; 85730; 87086; 87400; 93005; 96365; 96375; J0692; J1170; J1650; J1956; J2405; J3370; J7030